=== PATIENT | male | born 1995 | race Caucasian/White ===

== ENCOUNTER 2021-04-25 08:20 | Emergency (ER) | payer SELFPAY ==
[~2021-04-25] VITALS: Ht 190.5 cm; Wt 93.2 kg
[2021-04-25 08:28] VITALS: BP 134/81
== END 2021-04-25 09:22 | disposition left against medical advice (07) ==
LOC: ED 08:20
DX: R07.89 Other chest pain (principal); Z20.822 Contact with and (suspected) exposure to COVID-19